=== PATIENT | male | born 1960 | race Caucasian/White ===

== ENCOUNTER 2016-06-14 06:09 | Day surgery (SDC) | payer OTHER ==
[2016-06-14] MEDS ORDERED: Lactated Ringers 1,000 ML IV SCH (06:30)
[2016-06-14] MEDS ORDERED: SUBLIMAZE 100 MCG/2 ML IV ONE (08:00)
[2016-06-14] MEDS ORDERED: Versed 2 MG/2 ML Injection IV ONE (08:00)
[2016-06-14] MEDS ORDERED: Ephedrine Sulfate 50 MG/ML IV ONE (08:00)
[2016-06-14] MEDS ORDERED: DIPRIVAN 200 MG/20 ML IV ONE (08:00)
[2016-06-14 08:30] VITALS: BP 138/81; PULSE 80; O2SAT 96
--- NOTE | 2016-06-14 08:45 | OP ---
SURGERY DATE/TIME: 06/14/201603 PREOPERATIVE DIAGNOSIS: Screening colonoscopy. POSTOPERATIVE DIAGNOSIS: Normal colon. PROCEDURE: Colonoscopy. SURGEON: Billy Orellana M.D. ANESTHESIA: MAC by Prabhu Medina CRNA. ESTIMATED BLOOD LOSS: None. SPECIMENS: None. DESCRIPTION OF PROCEDURE: After informed written consent was obtained, the patient was taken to the endoscopy suite. He underwent monitored anesthesia. A digital rectal exam showed normal sphincter tone and no internal lesions. The scope was inserted in the rectum and sequentially the entire colonic mucosa was traversed. The level of cecum was reached and verified with direct visualization of ileocecal valve. Upon withdrawal careful mucosal inspection revealed no abnormalities. Prep was noted to be fair. Prior to withdrawal retroflexion was performed and this was within normal limits. The scope was removed and the patient was transferred to the recovery room in excellent condition.
== END 2016-06-14 08:35 | disposition home or self-care (01) ==
LOC: SDC 06:09
PROVIDERS: ATTEND Family Medicine
PROC: 0DJD8ZZ Inspection of Lower Intestinal Tract, Via Natural or Artificial Opening Endoscopic (ICD-10-PCS; principal; 2016-06-14)
DX: Z12.11 Encounter for screening for malignant neoplasm of colon (principal)
CPT/HCPCS: 00810; 82962; J2250; J2704; J3010